=== PATIENT | female | born 1960 | race Caucasian/White ===

== ENCOUNTER 2023-04-20 04:22 | Inpatient (IN) | payer OTHER ==
[~2023-04-20] VITALS: Ht 172.7 cm; Wt 73.6 kg
[2023-04-20] MEDS ORDERED: ONDANSETRON HCL 4 MG/2 ML VIAL IV ONE ×2 (04:45→07:00)
[2023-04-20 04:59] LABS: Basophils # (auto) 0 10 ^3/uL (0-0.2); Basophils % (auto) 0.2 % (0.0-2.0); Eosinophils # (auto) 0 10 ^3/uL (0-0.8); Hematocrit 39.2 % (36.0-46.0); Hemoglobin 13.5 g/dL (12.2-16.2); Lymphocytes # (auto) 1.3 10 ^3/uL (0.4-5.4); Lymphocytes % (auto) 9.3 % (10.0-50.0); Mean Corpuscular Hemoglobin 31.5 pg (28.0-32.0); Mean Corpuscular Hgb Conc. 34.5 g/dL (32.0-36.0); Mean Corpuscular Volume 91.4 fL (80.0-100.0); Monocytes # (auto) 0.5 10 ^3/uL (0-1.3); Monocytes % (auto) 3.3 % (0.0-12.0); Neutrophils # (auto) 12.6 10 ^3/uL (1.6-8.6); Neutrophils % (auto) 87.2 % (37.0-80.0); Red Blood Cells 4.28 10^6/uL (4.0-5.20); Red Cell Distribution Width 12.6 % (11.8-14.3); White Blood Cell 14.5 10^3/uL (4.4-10.8)
[2023-04-20 05:09] LABS: Albumin 4.1 g/dL (3.4-5.0); Calcium 9.3 mg/dL (8.5-10.1); Potassium 3.1 mmol/L (3.5-5.1)
[2023-04-20 05:13] LABS: BUN/Creatinine Ratio 9.2 (10.0-20.0); Bilirubin, Total 0.4 mg/dL (0.2-1.0); Total Protein 6.9 g/dL (6.4-8.2)
[2023-04-20] MEDS ORDERED: POTASSIUM EFFERVESENT TAB 25 MEQ PO ONE (06:00)
[2023-04-20] MEDS ORDERED: SODIUM CHLORIDE 0.9% 1,000 ML IV ONE (06:45)
[2023-04-20] MEDS ORDERED: POTASSIUM CHL 20MEQ/100ML 100 ML IV ONE ×2 (07:00→20:00)
[2023-04-20] MEDS ORDERED: MORPHINE SULFATE INJ 2 MG/ml SYRG IV PRN ×2 (08:15)
[2023-04-20] MEDS ORDERED: NITROGLYCERIN 0.4 MG SL TAB SL PRN (08:15)
[2023-04-20] MEDS ORDERED: HYDROcodone-ACET 5/325MG TAB PO PRN (08:15)
[2023-04-20] MEDS ORDERED: DOCUSATE SOD 100 MG CAP PO PRN (08:15)
[2023-04-20] MEDS ORDERED: LORazepam 0.5 MG TAB PO PRN (08:15)
[2023-04-20] MEDS ORDERED: ONDANSETRON HCL 4 MG/2 ML VIAL IV PRN (08:15)
[2023-04-20 09:20] LABS: Cholesterol 121 mg/dL (< 200)
[2023-04-20 09:23] LABS: HDL Cholesterol 54 mg/dL (40-59); LDL Cholesterol 65 mg/dL (< 100); Triglycerides 80 mg/dL (< 150)
[2023-04-20] MEDS ORDERED: ENOXAPARIN SOD 40 MG/0.4 ML SYRINGE SC SCH (10:00)
[2023-04-20 11:33] LABS: Basophils # (auto) 0 10 ^3/uL (0-0.2); Basophils % (auto) 0.2 % (0.0-2.0); Eosinophils # (auto) 0 10 ^3/uL (0-0.8); Hematocrit 39.1 % (36.0-46.0); Hemoglobin 13.4 g/dL (12.2-16.2); Lymphocytes # (auto) 1.2 10 ^3/uL (0.4-5.4); Lymphocytes % (auto) 7.7 % (10.0-50.0); Mean Corpuscular Hemoglobin 30.8 pg (28.0-32.0); Mean Corpuscular Hgb Conc. 34.2 g/dL (32.0-36.0); Mean Corpuscular Volume 90.1 fL (80.0-100.0); Monocytes # (auto) 0.5 10 ^3/uL (0-1.3); Monocytes % (auto) 3.5 % (0.0-12.0); Neutrophils # (auto) 13.6 10 ^3/uL (1.6-8.6); Neutrophils % (auto) 88.6 % (37.0-80.0); Red Blood Cells 4.34 10^6/uL (4.0-5.20); Red Cell Distribution Width 12.4 % (11.8-14.3); White Blood Cell 15.3 10^3/uL (4.4-10.8)
[2023-04-20 12:27] LABS: Potassium 3.4 mmol/L (3.5-5.1)
[2023-04-20 12:34] LABS: BUN/Creatinine Ratio 10.7 (10.0-20.0); Bilirubin, Total 0.6 mg/dL (0.2-1.0); Calcium 9.1 mg/dL (8.5-10.1); Total Protein 6.5 g/dL (6.4-8.2)
[2023-04-20] MEDS: SODIUM CHLORIDE 0.9% 1,000 ML IV SCH (17:28)
[2023-04-21] VITALS (7 sets, daily range): BP systolic 98–123; BP diastolic 51–69; PULSE 66–93; RESP 16–17; TEMP 97.9–99; O2SAT 94–100
[2023-04-21] MEDS: SODIUM CHLORIDE 0.9% 1,000 ML IV SCH (00:50)
[2023-04-21 05:12] LABS: Basophils # (auto) 0 10 ^3/uL (0-0.2); Eosinophils # (auto) 0 10 ^3/uL (0-0.8); Eosinophils % (auto) 0.2 % (0.0-7.0); Hematocrit 40.8 % (36.0-46.0); Hemoglobin 13.5 g/dL (12.2-16.2); Lymphocytes # (auto) 1.8 10 ^3/uL (0.4-5.4); Lymphocytes % (auto) 11.7 % (10.0-50.0); Mean Corpuscular Hemoglobin 31.1 pg (28.0-32.0); Mean Corpuscular Hgb Conc. 33.1 g/dL (32.0-36.0); Mean Corpuscular Volume 94.1 fL (80.0-100.0); Monocytes # (auto) 1.4 10 ^3/uL (0-1.3); Monocytes % (auto) 9.1 % (0.0-12.0); Neutrophils # (auto) 12.2 10 ^3/uL (1.6-8.6); Red Blood Cells 4.34 10^6/uL (4.0-5.20); Red Cell Distribution Width 12.5 % (11.8-14.3); White Blood Cell 15.4 10^3/uL (4.4-10.8)
[2023-04-21 05:35] LABS: Albumin 3.6 g/dL (3.4-5.0); Calcium 8.9 mg/dL (8.7-10.4); Potassium 3.9 mmol/L (3.5-5.1)
[2023-04-21 05:40] LABS: Bilirubin, Total 0.8 mg/dL (0.2-1.0)
[2023-04-21] MEDS ORDERED: POTASSIUM CHLORIDE 8 MEQ TAB PO ONE (09:00)
[2023-04-21 09:11] LABS: Urine WBC None Seen /hpf (0 - 5)
[2023-04-21] MEDS: ACETAMINOPHEN 325 MG TAB PO PRN ×3 (09:50→23:49)
[2023-04-21] MEDS: ENOXAPARIN SOD 80 MG/0.8ML SYRINGE SC SCH ×2 (09:51→21:52)
[2023-04-21] MEDS: PANTOPRAZOLE 40 MG/10 ML VIAL INJ IV SCH (09:51)
[2023-04-21] MEDS ORDERED: METOPROLOL SUCCINATE XL 50 MG TAB PO SCH (10:00)
[2023-04-21 10:03] LABS: Alcohol, Urine < 3.0 mg/dL (0-10); Amphetamine Screen, Urine NEGATIVE (NEGATIVE); Barbiturate Scree,Urine NEGATIVE (NEGATIVE); Benzodiazephine Screen, Urine NEGATIVE (NEGATIVE); Cannabinoid Screen, Urine POSITIVE (NEGATIVE)
[2023-04-21 10:10] LABS: Cocaine Screen, Urine NEGATIVE (NEGATIVE); Opiate Scree,Urine NEGATIVE (NEGATIVE); Phencyclidine Screen, Urine NEGATIVE (NEGATIVE)
[2023-04-21 10:43] LABS: Urine Bacteria NONE SEEN /hpf (None Seen); Urine Blood Negative /uL (Negative); Urine Clarity Clear (Clear); Urine Color Colorless (Yellow); Urine Mucus FEW (None Seen); Urine Protein, UAD Negative (Negative); Urine Specific Gravity 1.003 (1.001-1.035); Urine Urobilinogen Normal (Negative); Urine WBC Clumps PRESENT /hpf (None Seen); Urine pH 6.5 (5.0-8.0)
[2023-04-21] MEDS: METOPROLOL TARTRATE 25 MG TAB PO SCH (21:52)
[2023-04-22] MEDS ORDERED: FAMO40TA7 PO (01:42)
[2023-04-22] MEDS ORDERED: BUPR-60 PO (01:42)
[2023-04-22] MEDS ORDERED: LINA145C PO (01:42)
[2023-04-22] MEDS ORDERED: ATOR10TA52 PO (01:42)
[2023-04-22 05:00] VITALS: BP 123/67; PULSE 62; RESP 18; TEMP 97.6; O2SAT 96
[2023-04-22] MEDS: ACETAMINOPHEN 325 MG TAB PO PRN ×2 (05:39→10:31)
[2023-04-22 07:03] LABS: Basophils # (auto) 0.1 10 ^3/uL (0-0.2); Basophils % (auto) 0.8 % (0.0-2.0); Eosinophils # (auto) 0.1 10 ^3/uL (0-0.8); Hemoglobin 12.8 g/dL (12.2-16.2); Lymphocytes # (auto) 3.1 10 ^3/uL (0.4-5.4); Lymphocytes % (auto) 41.3 % (10.0-50.0); Mean Corpuscular Hemoglobin 31.1 pg (28.0-32.0); Mean Corpuscular Hgb Conc. 33.6 g/dL (32.0-36.0); Mean Corpuscular Volume 92.5 fL (80.0-100.0); Monocytes # (auto) 0.8 10 ^3/uL (0-1.3); Monocytes % (auto) 10.5 % (0.0-12.0); Neutrophils # (auto) 3.4 10 ^3/uL (1.6-8.6); Neutrophils % (auto) 45.4 % (37.0-80.0); Red Blood Cells 4.11 10^6/uL (4.0-5.20); Red Cell Distribution Width 12.8 % (11.8-14.3); White Blood Cell 7.4 10^3/uL (4.4-10.8)
[2023-04-22 07:16] LABS: Alanine Aminotransferase 19 U/L (7-40); Albumin 3.7 g/dL (3.2-4.8); Alkaline Phosphatase 84 U/L (46-116); Anion Gap 5.4 (5-15); Aspartate Aminotransferase 19 U/L (13-40); BUN/Creatinine Ratio 8.6 (10.0-20.0); Bilirubin, Total 0.6 mg/dL (0.2-1.0); Blood Urea Nitrogen 5 mg/dL (9-23); Calcium 8.8 mg/dL (8.5-10.1); Carbon Dioxide 29.6 mmol/L (20-30); Chloride 103 mmol/L (98-107); Glucose 97 mg/dL (74-106); Potassium 3.5 mmol/L (3.5-5.1); Sodium 138 mmol/L (136-145); Total Protein 5.4 g/dL (5.7-8.2)
[2023-04-22] MEDS ORDERED: POTASSIUM CHL 10 Meq TABLET PO ONE (08:00)
[2023-04-22 08:30] VITALS: PULSE 67; PULSE 87; RESP 17; O2SAT 100
[2023-04-22 09:00] VITALS: BP 146/67; PULSE 66; RESP 16; TEMP 98.2; O2SAT 96
[2023-04-22] MEDS: ENOXAPARIN SOD 80 MG/0.8ML SYRINGE SC SCH (10:31)
[2023-04-22] MEDS: METOPROLOL TARTRATE 25 MG TAB PO SCH (10:31)
[2023-04-22] MEDS: PANTOPRAZOLE 40 MG/10 ML VIAL INJ IV SCH (10:31)
[2023-04-22 13:00] VITALS: BP 130/74; PULSE 60; RESP 17; TEMP 97.6; O2SAT 98
[2023-04-22] MEDS ORDERED: APIX5TAB4 PO (13:26)
[2023-04-22] MEDS ORDERED: MET25T PO (13:26)
== END 2023-04-22 15:44 | disposition home or self-care (01) | DRG 871 ==
LOC: ER 04:22 → TELE 08:15 → TELE-WESTW 04-21 05:57
PROVIDERS: ADMIT Internal Medicine; ATTEND Internal Medicine
DX: A41.9 Sepsis, unspecified organism (principal); G93.41 Metabolic encephalopathy; E87.1 Hypo-osmolality and hyponatremia; K57.30 Diverticulosis of large intestine without perforation or abscess without bleeding; K31.84 Gastroparesis; I48.0 Paroxysmal atrial fibrillation; E87.6 Hypokalemia; I10 Essential (primary) hypertension; Z88.5 Allergy status to narcotic agent; R11.2 Nausea with vomiting, unspecified
CPT/HCPCS: 36415; 70450; 71045; 74176; 76705; 80053; 80061; 80307; 81001; 83036; 83690; 83735; 83930; 83935; 84443; 84484; 84550; 85025; 93005; 93306; 96372; C9113; G0378; J2405; J3480